=== PATIENT | female | born 1995 | race Two or more races ===

== ENCOUNTER 2023-10-05 20:07 | Emergency (ER) | payer MEDICAID, OTHER ==
[~2023-10-05] VITALS: Ht 149.9 cm; Wt 86.4 kg
[2023-10-05 20:43] VITALS: BP 144/90; PULSE 103; RESP 16; O2SAT 100
[2023-10-05] MEDS: ACETAMINOPHEN 325 MG TAB PO ONE (20:43)
== END 2023-10-06 00:28 | disposition left against medical advice (07) ==
LOC: ER 20:07
DX: K08.89 Other specified disorders of teeth and supporting structures (principal); Z53.21 Procedure and treatment not carried out due to patient leaving prior to being seen by health care provider